=== PATIENT | male | born 1985 | race Two or more races ===

== ENCOUNTER 2025-01-13 14:30 | Emergency (ER) | payer MEDICAID ==
[~2025-01-13] VITALS: Ht 185.4 cm; Wt 240.4 kg
[2025-01-13 14:33] VITALS: TEMP 98.3
[2025-01-13 17:45] VITALS: BP 136/88; O2SAT 98
== END 2025-01-13 18:00 | disposition home or self-care (01) ==
LOC: ER 14:37
DX: M54.42 Lumbago with sciatica, left side (principal); I11.0 Hypertensive heart disease with heart failure; E11.9 Type 2 diabetes mellitus without complications; I50.9 Heart failure, unspecified; E66.01 Morbid (severe) obesity due to excess calories; F17.200 Nicotine dependence, unspecified, uncomplicated; G89.29 Other chronic pain; Z68.44 Body mass index [BMI] 60.0-69.9, adult